=== PATIENT | male | born 1970 | race American Indian/Alaskan Native ===

== ENCOUNTER 2018-03-02 00:20 | Emergency (ER) | payer OTHER ==
[2018-03-02 00:21] VITALS: BMI 14.6
[2018-03-02 00:30] VITALS: TEMP 98
--- NOTE | 2018-03-02 00:35 | ED PDOC ---
Arrival/HPI - General Historian: Patient - History of Present Illness Time/Duration: Other (see hpi) Context: Home <Jennie Cardenas P - Last Filed: 03/02/18 02:17> <Xavier Obando P - Last Filed: 03/06/18 10:39> - General Chief Complaint: Alcohol Ingestion Time Seen by Provider: 03/02/18 00:34 - History of Present Illness Narrative History of Present Illness (Text): 03/02/18 00:35 This 47 yo male with pmh alcohol abuse, is brought to this ED by BLS for alcohol intoxication. According to BLS, patient was recently at [facility] [place] [facility] for alcohol intoxication early today. Patient stated he had been drinking an [place] Patient denies other complains. Patient is requesting a place to sleep. (Jennie Cardenas) Past Medical History - Provider Review Nursing Documentation Reviewed: Yes - Infectious Disease Hx of Infectious Diseases: None - Psychiatric Hx Substance Use: No <Jennie Cardenas P - Last Filed: 03/02/18 02:17> Family/Social History - Physician Review Nursing Documentation Reviewed: Yes Family/Social History: Other (noncontributory) Smoking Status: Unknown If Ever Smoked Hx Alcohol Use: Yes Hx Substance Use: No <Jennie Cardenas P - Last Filed: 03/02/18 02:17> Allergies/Home Meds <Jennie Cardenas P - Last Filed: 03/02/18 02:17> <Xavier Obando P - Last Filed: 03/06/18 10:39> Allergies/Adverse Reactions: Allergies peanut Allergy (Verified 04/22/17 14:38) RASH Home Medications: Home Meds Medication Instructions Recorded Confirmed Unobtainable 03/02/18 03/02/18 Review of Systems - Review of Systems Constitutional: Normal. absent: Fatigue, Weight Change, Fevers, Night Sweats Eyes: Normal ENT: Normal Respiratory: Normal Cardiovascular: Normal Gastrointestinal: Normal Genitourinary Male: Normal Musculoskeletal: Normal Skin: Normal Neurological: Normal Endocrine: Normal Hemo/Lymphatic: Normal Psychiatric: Other (alcohol abuse. Homeless). absent: Anxiety, Depression, Suicidal Ideation <Jennie Cardenas P - Last Filed: 03/02/18 02:17> Physical Exam Temperature: Afebrile Blood Pressure: Normal Pulse: Regular Respiratory Rate: Normal Appearance: Positive for: Well-Appearing, Non-Toxic, Comfortable, Unkept Pain Distress: None - Systems Exam Head: Present: Atraumatic, Normocephalic Pupils: Present: PERRL Extroacular Muscles: Present: EOMI Conjunctiva: Present: Normal Mouth: Present: Moist Mucous Membranes Neck: Present: Normal Range of Motion Respiratory/Chest: Present: Clear to Auscultation, Good Air Exchange. No: Respiratory Distress, Accessory Muscle Use Cardiovascular: Present: Regular Rate and Rhythm, Normal S1, S2. No: Murmurs Abdomen: No: Tenderness, Distention, Peritoneal Signs Back: Present: Normal Inspection Upper Extremity: Present: Normal Inspection. No: Cyanosis, Edema Lower Extremity: Present: Normal Inspection. No: Edema Neurological: Present: GCS=15, CN II-XII Intact, Speech Normal Skin: Present: Warm, Dry, Normal Color. No: Rashes Psychiatric: Present: Alert, Intoxicated <Jennie Cardenas - Last Filed: 03/02/18 02:17> Vital Signs Temp Pulse Resp BP Pulse Ox 03/02/18 06:01 72 19 122/78 100 03/02/18 03:30 89 16 114/79 99 03/02/18 00:29 98.0 F 88 18 120/68 98 Medical Decision Making Reassessment Condition: Re-examined <Jennie Cardenas P - Last Filed: 03/02/18 02:17> <Xavier Obando P - Last Filed: 03/06/18 10:39> ED Course and Treatment: 03/02/18 02:17 Patient signed out to Dr. Obando at this time. Pending revaluation in the morning. (Jennie Cardenas) - PA / [employer] / Resident Statement MD/DO has reviewed & agrees with the documentation as recorded. <Xavier Obando P - Last Filed: 03/06/18 10:39> Disposition/Present on Arrival - Present on Arrival History of DVT/PE: No History of Uncontrolled Diabetes: No Urinary Catheter: No History of Decub. Ulcer: No History Surgical Site Infection Following: None <Jennie Cardenas - Last Filed: 03/02/18 02:17> - Present on Arrival Any Indicators Present on Arrival: No History of DVT/PE: No History of Uncontrolled Diabetes: No Urinary Catheter: No History of Decub. Ulcer: No - Disposition Have Diagnosis and Disposition been Completed?: Yes Disposition Time: 06:36 Patient Plan: Discharge <Xavier Obando - Last Filed: 03/06/18 10:39> - Disposition Diagnosis: Alcohol intoxication Disposition: HOME/ ROUTINE Condition: IMPROVED Discharge Instructions (ExitCare): Alcohol Abuse and Alcoholism (DC) Forms: [employer] (Dominican)
[2018-03-02 06:02] VITALS: BP 122/78; PULSE 72; RESP 19; O2SAT 100
== END 2018-03-02 06:36 | disposition home or self-care (01) ==
LOC: ED 00:20
DX: F10.129 Alcohol abuse with intoxication, unspecified (principal)